=== PATIENT | male | born 1995 | race Caucasian/White ===

== ENCOUNTER → 2016-11-28 | Outpatient (CLI) | payer BC, OTHER | END | disposition home or self-care (01) | LOC: C.RDSM 13:30 | PROVIDERS: ATTEND Orthopaedic Surgery Sports Medicine | DX: M25.561 Pain in right knee (principal) ==

== ENCOUNTER → 2016-11-30 | Outpatient (CLI) | payer BC, OTHER ==
--- NOTE | 2016-11-30 21:10 | DIAGNOSTIC IMAGING REPORT ---
MRI THE RIGHT KNEE NO CONTRAST CLINICAL HISTORY: Right knee pain status post trauma COMPARISON STUDY: Conventional x-ray dated November 28, 2016 FINDINGS: Imaging was performed in the sagittal, coronal, and axial planes. The visualized portions of the quadriceps and patellar tendons appear intact. The medial and lateral collateral ligaments appear intact. The patellar retinacular structures appear intact. The anterior and posterior crucial ligaments appear intact. There is a nondepressed fracture involving the medial tibial plateau anteriorly. There is a minimally depressed fracture (3 mm) involving the anterior aspect of the lateral tibial plateau. No meniscal tears are visualized. There is prominent subcutaneous edema located anteriorly. There is also posterior edema within the central fat. IMPRESSION: 1. Acute fractures of the anterior aspect of the medial and lateral tibial plateaus 2. No evidence of meniscal tear 3. No evidence of cruciate or collateral ligament disruption Electronically signed by: Davon Sinha M.D. 11/30/2016 9:09 PM Dictated Date/Time: 11/30/2016 9:01 PM
== END | disposition home or self-care (01) ==
LOC: C.MRI 20:01
PROVIDERS: ATTEND Orthopaedic Surgery Sports Medicine
DX: S82.141A Displaced bicondylar fracture of right tibia, initial encounter for closed fracture (principal); S82.144A Nondisplaced bicondylar fracture of right tibia, initial encounter for closed fracture; X58.XXXA Exposure to other specified factors, initial encounter

== ENCOUNTER → 2017-01-05 | Outpatient (CLI) | payer BC, OTHER | END | disposition home or self-care (01) | LOC: C.RDSM 08:20 | PROVIDERS: ATTEND Orthopaedic Surgery Sports Medicine | DX: M25.561 Pain in right knee (principal) ==